=== PATIENT | female | born 1980 | race American Indian/Alaskan Native ===

== ENCOUNTER 2023-02-11 06:30 | Day surgery (SDC) | payer OTHER ==
[2023-02-09 09:25] LABS: PH,URINE 6.5 (5.0-8.0); URINE APPEARANCE Clear; URINE BILIRRUBIN Negative (NEGATIVE); URINE BLOOD Negative; URINE COLOR Yellow; URINE GLUCOSE Negative (NEGATIVE); URINE LEUKOCYTE Trace; URINE NITRATE Negative; URINE PROTEIN Negative (NEGATIVE); URINE UROBILINOGEN 0.2 E.U./dl
[2023-02-09 09:27] LABS: HEMATOCRIT 39.4 % (36.0-45.00); HEMOGLOBIN 13.8 g/dL (12.0-15.00); MEAN CELL VOLUME 84.5 fL (80.00-100.00); MEAN CORPUSCULAR HEMOGLOBIN 29.6 pg (27.00-32.0); PLATELET COUNT 198 K/uL (150-450); RED BLOOD COUNT 4.66 M/uL (4.00-6.00); RED CELL DISTRIBUTION WIDTH 13.2 % (11.5-14.5)
[2023-02-09 09:30] LABS: URINE BACTERIA 1099.9 uL (0.0-1933); URINE EPITHELIAL CELLS 55.4 uL (0.0-38.8); URINE RBC 4.5 uL (0.0-20.8); URINE WBC 58.7 uL (0.0-23.2)
[2023-02-09 09:53] LABS: INR 1.02; PROTHROMBIN TIME 10.7 SECONDS (9.0-11.5)
[2023-02-09 10:03] LABS: ALBUMIN 3.7 gm/dL (3.4-5.0); BILIRUBIN TOTAL 0.64 mg/dL (0.3-1.2); CALCIUM 9.2 mg/dL (8.5-10.1); CREATININE SERUM 0.54 mg/dL (0.55-1.02); GFR 123.81; GLOBULINA 3.4 G/DL (2.4-3.5); POTASSIUM 3.82 mEq/L (3.5-5.1); TOTAL PROTEIN 7.1 gm/dL (6.4-8.2)
== END 2023-02-11 21:15 | disposition home or self-care (01) ==
LOC: CIR.AMB 06:30
PROVIDERS: ATTEND Surgery
DX: D24.1 Benign neoplasm of right breast (principal); D24.2 Benign neoplasm of left breast; D48.61 Neoplasm of uncertain behavior of right breast; D48.62 Neoplasm of uncertain behavior of left breast; N62 Hypertrophy of breast; N60.82 Other benign mammary dysplasias of left breast; N60.02 Solitary cyst of left breast; N60.92 Unspecified benign mammary dysplasia of left breast; Z20.822 Contact with and (suspected) exposure to COVID-19
CPT/HCPCS: 19301; 38525; 19281; 19282; L8699